=== PATIENT | male | born 1990 | race Caucasian/White ===

== ENCOUNTER 2016-09-01 05:07 | Emergency (ER) | payer BC, OTHER ==
[2016-09-01 05:49] VITALS: RESP 16
[2016-09-01] MEDS ORDERED: IBUPROFEN 800 MG TAB PO STA (05:51)
--- NOTE | 2016-09-01 05:54 | ED ---
Fall HPI - General Chief Complaint: Fall Stated Complaint: fell on ice, back, shoulder pain Time Seen by Provider: 09/01/16 05:30 Source: patient Mode of arrival: ambulatory - History of Present Illness Initial Comments: This is a 26-year-old male who states he slipped on some ice and fell landed on his left hip also striking his head. He states he does have a history of migraine headaches he states his headache is 5-6/10 severity is worse in his typical migraine. It is throbbing in nature. He denies any focal loss of vision or function. MD Complaint: fall - Related Data Previous Rx's Medication Instructions Recorded Cyclobenzaprine [Flexeril] 10 mg PO TID #14 tab 09/01/16 Ibuprofen [Motrin] 800 mg PO Q6HR PRN #20 tab 09/01/16 Allergies Allergy/AdvReac Type Severity Reaction Status Date / Time No Known Allergies Allergy Verified 11/22/14 18:07 Review of Systems ROS Statement: Those systems with pertinent positive or pertinent negative responses have been documented in the HPI. ROS Other: All systems not noted in ROS Statement are negative. Past Medical History Past Medical History: No Reported History History of Any Multi-Drug Resistant Organisms: None Reported Past Surgical History: No Surgical Hx Reported Additional Past Surgical History / Comment(s): ear tubes as child Past Psychological History: No Psychological Hx Reported Smoking Status: Never smoker Past Alcohol Use History: Occasional Past Drug Use History: None Reported General Exam - General Exam Comments Initial Comments: This is a well-developed well-nourished awake alert oriented 3 male he has a David Coma Scale of 15 Limitations: no limitations General appearance: alert, in no apparent distress Head exam: Present: normocephalic, other (Mild tenderness palpation of the neck supple scalp no step-off or crepitation no open wounds or abrasions.) Eye exam: Present: normal appearance, PERRL, EOMI. Absent: scleral icterus, conjunctival injection, periorbital swelling ENT exam: Present: normal exam, mucous membranes moist Neck exam: Present: normal inspection. Absent: tenderness, meningismus, lymphadenopathy Respiratory exam: Present: normal lung sounds bilaterally. Absent: respiratory distress, wheezes, rales, rhonchi, stridor Cardiovascular Exam: Present: regular rate, normal rhythm, normal heart sounds. Absent: systolic murmur, diastolic murmur, rubs, gallop, clicks GI/Abdominal exam: Absent: distended, tenderness, guarding, rebound, rigid Rectal exam: Present: deferred Extremities exam: Present: normal inspection, full ROM, normal capillary refill. Absent: tenderness, pedal edema, joint swelling, calf tenderness Back exam: Present: normal inspection, tenderness (Tennis palpation of the left SI joint and left hip area. No step-off or crepitation also some tenderness over the left paraspinous lumbar musculature no spinous process tenderness here however.) Neurological exam: Present: alert, oriented X3, CN II-XII intact Psychiatric exam: Present: normal affect, normal mood Skin exam: Present: warm, dry, intact, normal color. Absent: rash Course Vital Signs 09/01/16 09/01/16 05:14 06:59 Temperature 98 F 97.9 F Pulse Rate 80 76 Respiratory 16 16 Rate Blood Pressure 130/66 128/76 O2 Sat by Pulse 99 97 Oximetry Medical Decision Making - Medical Decision Making I did discuss findings with the patient the CAT scan did show evidence of sinusitis patient states he had a recent upper respiratory infection but is getting better I did recommend decongestants he's had no fevers chills or sweats so antibiotics are not indicated at this time. He is aware of this. He will be discharged - Radiology Data Radiology results: report reviewed (I did review the imaging and report no acute findings he does demonstrate spondylolisthesis.), image reviewed Disposition Clinical Impression: Fall, Lumbar strain, Contusion, hip, Scalp contusion Disposition: HOME SELF-CARE Condition: Good Instructions: Low Back Strain (ED), Hip Contusion (ED), Scalp Contusion in Adults (ED) Prescriptions: Cyclobenzaprine [Flexeril] 10 mg PO TID #14 tab Ibuprofen [Motrin] 800 mg PO Q6HR PRN #20 tab PRN Reason: Pain
--- NOTE | 2016-09-01 06:31 | CT ---
EXAM: CT Head Without Intravenous Contrast. CLINICAL HISTORY: Reason: Pain TECHNIQUE: Axial computed tomography images of the head/brain without intravenous contrast. CTDI is 60.3 mGy and DLP is 1036 mGy-cm Coronal and sagittal reformatted images were created and reviewed. COMPARISON: No relevant prior studies available. FINDINGS: Brain: Unremarkable. No hemorrhage. No significant white matter disease. No edema. Ventricles: Unremarkable. No ventriculomegaly. Bones/joints: Unremarkable. No acute fracture. Soft tissues: Unremarkable. Sinuses: Fluid levels within the maxillary sinuses and ethmoid air cells, correlate for acute sinusitis. Mastoid air cells: Unremarkable as visualized. No mastoid effusion. IMPRESSION: Fluid levels within the maxillary sinuses and ethmoid air cells, correlate for acute sinusitis. EXAM: CT Cervical Spine Without Intravenous Contrast. CLINICAL HISTORY: Reason: Pain TECHNIQUE: Axial computed tomography images of the cervical spine without intravenous contrast. CTDI is 22.9 mGy and DLP is 466.3 mGy-cm Coronal and sagittal reformatted images were created and reviewed. COMPARISON: No relevant prior studies available. FINDINGS: Vertebrae: Cervical straightening which may be secondary to positioning vs. spasm. No acute fracture. Discs/spinal canal/neural foramina: Disc osteophyte complex of C5/C6 with left lateral recess stenosis, not fully evaluated. Disc osteophyte complex of C6/C7 with possible right lateral recess stenosis, not fully evaluated. Soft tissues: Unremarkable. Lung apices: Unremarkable as visualized. IMPRESSION: 1. Disc osteophyte complex of C5/C6 with left lateral recess stenosis, not fully evaluated. 2. Disc osteophyte complex of C6/C7 with possible right lateral recess stenosis, not fully evaluated. 3. Cervical straightening which may be secondary to positioning vs. spasm. No acute fracture.
--- NOTE | 2016-09-01 06:34 | XR ---
EXAM: XR Lumbar Spine, 5 Views. CLINICAL HISTORY: Reason: Pain TECHNIQUE: Frontal, lateral and oblique views of the lumbar spine. COMPARISON: No relevant prior studies available. FINDINGS: Vertebrae: Suboptimal oblique images but findings suspicious for bilateral spondylolysis of L5 with grade 1 spondylolisthesis. Disc spaces: No acute findings. Mild narrowing of L5/S1. Soft tissues: Unremarkable. IMPRESSION: Suboptimal oblique images but findings suspicious for bilateral spondylolysis of L5 with grade 1 spondylolisthesis.
--- NOTE | 2016-09-01 06:35 | XR ---
EXAM: XR Pelvis, 1 View. CLINICAL HISTORY: Reason: Pain TECHNIQUE: Frontal view of the pelvis. COMPARISON: No relevant prior studies available. FINDINGS: Bones/joints: Please refer to lumbar spine report. No acute pelvic or femoral neck fracture. No destructive bony lesion. No dislocation. Soft tissues: Unremarkable. IMPRESSION: No pelvic or femoral neck fracture. No destructive bony lesion.
[2016-09-01 07:00] VITALS: BP 128/76; PULSE 76; TEMP 97.9
== END 2016-09-01 07:14 | disposition home or self-care (01) ==
LOC: EC 05:07
DX: S39.012A Strain of muscle, fascia and tendon of lower back, initial encounter (principal); S00.03XA Contusion of scalp, initial encounter; S70.02XA Contusion of left hip, initial encounter; Z86.69 Personal history of other diseases of the nervous system and sense organs; W00.0XXA Fall on same level due to ice and snow, initial encounter
CPT/HCPCS: 70450; 72110; 72125; 72170; 99283